=== PATIENT | male | born 1955 | race Caucasian/White ===

== ENCOUNTER 2017-07-12 14:08 | Emergency (ER) | payer SELFPAY ==
[~2017-07-12] VITALS: Ht 172.7 cm; Wt 100.0 kg
[2017-07-12 14:09] VITALS: BP 168/95
[2017-07-12] MEDS ORDERED: ALBUTEROL/IPRATROPIUM 2.5MG/0.5MG, 3 ML NPPB ONE (15:00)
[2017-07-12] MEDS ORDERED: ALBUTEROL/IPRATROPIUM 2.5MG/0.5MG, 3 ML ONE (15:29)
== END 2017-07-12 15:54 | disposition home or self-care (01) ==
LOC: ED 15:00
DX: J45.41 Moderate persistent asthma with (acute) exacerbation (principal); Z88.0 Allergy status to penicillin
CPT/HCPCS: 93005; 94640; 99283; J7512; J7620

== ENCOUNTER 2020-10-05 23:03 | Emergency (ER) | payer OTHER ==
[~2020-10-05] VITALS: Ht 170.2 cm; Wt 94.3 kg
[2020-10-05] MEDS ORDERED: ALBUTEROL/IPRATROPIUM 2.5MG/0.5MG, 3 ML ONE ×2 (23:27→23:52)
[2020-10-05] MEDS ORDERED: ALBUTEROL/IPRATROPIUM 2.5MG/0.5MG, 3 ML NPPB ONE (23:30)
[2020-10-05] MEDS ORDERED: ALBUTEROL/IPRATROPIUM 2.5MG/0.5MG, 3 ML NPPB SCH (23:30)
--- NOTE | 2020-10-05 23:33 | NUR ---
xray at bedside
--- NOTE | 2020-10-05 23:36 | NUR ---
Pt had asthma exacerbation and ran out of medication, when pt tried to get more from his normal pharmacy they said they were currenlty out. pt attached to BP and O2 monitors, epritory wheezes throughout, 94% RA. at bedside, APRYL BADILLO
--- NOTE | 2020-10-05 23:49 | NUR ---
Pt given neb and prednisone per JUL, WCTM
[2020-10-06 00:29] VITALS: BP 127/86
== END 2020-10-06 01:25 | disposition home or self-care (01) ==
LOC: ED 23:33
DX: J45.41 Moderate persistent asthma with (acute) exacerbation (principal); R94.31 Abnormal electrocardiogram [ECG] [EKG]
CPT/HCPCS: 71045; 93005; 94640; 99284; J7512